=== PATIENT | female | born 1940 | race Caucasian/White ===

== ENCOUNTER 2017-11-08 11:57 | Observation (INO) | payer MEDICARE ==
[~2017-11-08] VITALS: Ht 144.8 cm; Wt 59.4 kg
[2017-11-08] MEDS ORDERED: ASPIRIN 81 MG CHEW TAB PO ONE (12:15)
[2017-11-08 12:32] LABS: BASOPHILS % 0.5 % (0.0-1.0); EOSINOPHILS # (AUTO) 0.1 (0.0-0.4); EOSINOPHILS % 1.3 % (0.0-6.0); HEMATOCRIT 39.8 % (34.2-44.1); HEMOGLOBIN 13.5 g/dL (12.0-16.0); LYMPHOCYTES # (AUTO) 1.8 (1.0-3.2); MEAN CORPUSCULAR HEMOGLOBIN 31.1 pg (28-32); MEAN CORPUSCULAR HGB CONC 33.9 g/dL (31-35); MEAN CORPUSCULAR VOLUME 91.7 fL (81-99); MONOCYTES # (AUTO) 0.7 (0.2-0.8); MONOCYTES % 8.5 % (4.4-11.3); NEUTROPHILS # (AUTO) 5.5 (2.1-6.9); NEUTROPHILS % 67.2 % (38.7-80.0); PLATELET COUNT 282 x10e3/uL (140-360); RED BLOOD COUNT 4.34 x10e6/uL (3.6-5.1); RED CELL DISTRIBUTION WIDTH 13.2 % (11.7-14.4)
[2017-11-08 12:41] LABS: INR 0.92; PROTHROMBIN TIME 11.6 seconds (11.9-14.5)
[2017-11-08 12:42] LABS: PARTIAL THROMBOPLASTIN TIME 29.2 seconds (23.8-35.5)
[2017-11-08 12:51] LABS: ALBUMIN 3.6 g/dL (3.5-5.0); ALBUMIN/GLOBULIN RATIO 0.9 (0.8-2.0); ANION GAP 15.8 mmol/L (8-16); CALCIUM 10.2 mg/dL (8.4-10.2); CREATININE, SERUM 0.94 mg/dL (0.57-1.11); POTASSIUM 3.8 mmol/L (3.5-5.1)
[2017-11-08 12:58] LABS: CREATINE KINASE MB 1.4 ng/mL (0-5.0)
[2017-11-08] MEDS ORDERED: SODIUM CHLORIDE 0.9% 500ML 500 ML ONE (12:59)
[2017-11-08] MEDS ORDERED: SODIUM CHLORIDE 0.9% 500ML 500 ML IV ONE (13:00)
[2017-11-08] MEDS ORDERED: SODIUM CHLORIDE 0.9% 50ML 50 ML ONE (14:32)
[2017-11-08] MEDS ORDERED: IOPAMIDOL 370 MG/ML 200 ML INFUS..BTL INJ ONE (14:32)
--- NOTE | 2017-11-08 15:12 | Diagnostic Imaging Report ---
EXAM: CT Chest WITH contrast (PE Protocol) INDICATION: \S\SOB \[id number] \S\[id number] COMPARISON: None TECHNIQUE: Chest was scanned utilizing a multidetector helical scanner from the lung apex through the level of the diaphragm after administration of IV contrast. Thin section reconstructions were obtained with special concentration on the pulmonary arteries. Coronal and sagittal reformations were obtained. Pulmonary embolism protocol was performed. IV CONTRAST: 100 mL of Isovue-370 COMPLICATIONS: None RADIATION DOSE: Total DLP: 478.21 mGy*cm Estimated effective dose: (DLP x 0.014 x size factor) mSv CTDIvol has been reviewed. It is below the limits set by the Radiation Protocol Committee (RPC). FINDINGS: LINES/ TUBES: None. LUNGS AND AIRWAYS: Tiny nonobstructive filling defects within segmental branches of right upper lobe pulmonary artery, best seen on sagittal images (series 400, images 53 and 52). 3 mm subpleural left upper lobe nonspecific nodule (series 3, image 19). Airways are normal. PLEURA: The pleural spaces are clear. HEART AND MEDIASTINUM: The thyroid gland is normal. No mediastinal, hilar or axillary lymphadenopathy. The heart is normal in size.. There is no pericardial effusion. . Main pulmonary artery measures 2.6 cm in diameter and the ascending aorta measures 3.1 cm. UPPER ABDOMEN: Small calcified gallstone. Small hiatal hernia. BONES: Unremarkable. T3 vertebral body sclerotic focus, likely a bone island. SOFT TISSUES: Unremarkable. IMPRESSION: Small nonobstructing filling defects within segmental branches of the right upper lobe pulmonary artery, suspicious for pulmonary embolism. Cholelithiasis. Dr. Gregorio was notified at 3:05 PM, on 11/08/2017. Signed by: Dr. Sabino Mcgraw MD on 11/08/2017 3:09 PM
[2017-11-08] MEDS ORDERED: ENOXAPARIN SOD INJ 60 MG/0.6 ML SYR SC STA (15:41)
[2017-11-08 17:29] VITALS: BP 178/77
[2017-11-08 17:30] VITALS: BP 178/77
[2017-11-08 17:58] VITALS: BP 178/77
[2017-11-08] MEDS ORDERED: ACETAMINOPHEN 325 MG TAB PO PRN (18:00)
[2017-11-08] MEDS ORDERED: ONDANSETRON HCL 4 MG ORAL DISINTEGRATING TAB PO PRN ×2 (18:00→18:30)
[2017-11-08 18:24] VITALS: BP 134/65
[2017-11-08 20:05] VITALS: BP 141/66
[2017-11-08] MEDS: ENOXAPARIN SOD INJ 60 MG/0.6 ML SYR SC SCH (20:39)
[2017-11-08] MEDS: ACETAMINOPHEN 325 MG TAB PO PRN (20:41)
[2017-11-08 21:39] VITALS: BP 141/66
[2017-11-09] VITALS: BP 139/77
[2017-11-09 04:00] VITALS: BP 141/64
[2017-11-09 08:01] VITALS: BP 141/63
[2017-11-09] MEDS: ENOXAPARIN SOD INJ 60 MG/0.6 ML SYR SC SCH (08:52)
[2017-11-09] MEDS ORDERED: RIVAROXABAN 15 MG TABLET PO SCH (09:00)
[2017-11-09] MEDS: ACETAMINOPHEN 325 MG TAB PO PRN (09:30)
--- NOTE | 2017-11-09 11:42 | History and Physical ---
PRIMARY CARE PHYSICIAN: Dr. Tod Barrera with [facility]. REASON FOR ADMISSION: Shortness of breath. HISTORY OF PRESENT ILLNESS: Ms. Dolores Chang is a 77-year-old female. She had a recent travel to [place] in [place] about few weeks ago and after that she has been having episodes of cough with shortness of breath. She has seen her primary care physician and she was diagnosed with some bacterial infection. She has completed the course of antibiotics, but still she did not get any better, hence she has seen her PCP yesterday and he who ordered a CT chest with PE protocol. CT chest PE protocol showed some filling defect in the segmental branches of the right upper lobe pulmonary artery suspicious for PE, hence the patient was admitted to the hospital under observation status. She was started on Lovenox and Hematology, Dr. Stephenson also was consulted. She denies any lower extremity swelling or pain. She denies any other past medical history. REVIEW OF SYSTEM GENERAL: She is afebrile. Denies any focal weakness. HEENT: Eyes: Denies any blurry vision. ENT: Denies any ear, nose, throat pain, or drainage. CARDIOVASCULAR: Denies any chest pain. Does have some shortness of breath. Denies any palpitations or syncopal episodes. RESPIRATORY: Does have cough, shortness of breath. Denies any sputum production. GI: Denies any nausea, vomiting, abdominal pain, or diarrhea. NEURO: Denies any headaches, dizziness or focal weakness. MUSCULOSKELETAL: No joint swelling or tenderness. GENITOURINARY: Denies any dysuria, urinary frequency or urgency. INTEGUMENTARY: Denies any ulcers or rash. PAST MEDICAL HISTORY: None. 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 SOCIAL HISTORY: She lives at home. She is pretty independent. No history of smoking, alcohol or drug use. She is retired. FAMILY HISTORY: Father had history of multiple myeloma and congestive heart failure. Both parents are current . HOME MEDICATIONS: Currently none. PHYSICAL EXAMINATION VITAL SIGNS: At this time, temperature 96.7, heart rate is 66, respirations of 19, blood pressure 141/63, SpO2 of 99% on room air. GENERAL: The patient is awake, alert, and oriented. She is currently not in any acute distress. HEENT: Head is normocephalic, atraumatic. Eyes: Normal extraocular movements noted. ENT: Moist mucous membranes noted. NECK: Supple. No raised JVD. CARDIOVASCULAR: Rate and rhythm regular. LUNGS: Clear to auscultation bilaterally. Occasional rhonchi noted. GI: Abdomen is soft, nontender. Bowel sounds present. NEURO: Cranial nerves II-XII grossly intact. Power and tone is normal in the bilateral upper and lower extremities. PSYCH: Normal mood and affect. INTEGUMENTARY: No ulcers or rash noted. MUSCULOSKELETAL: No joint swelling or tenderness noted. LABS AND IMAGING STUDIES: CBC: WBC count of 8.2, hemoglobin 13.5, hematocrit 39.8, platelet count of 282,000. BMP: Sodium 142, potassium 3.8, chloride 106, CO2 of 24, BUN of 15, creatinine 0.94, and blood glucose of 97. Coagulation: PT is 11.6, INR 0.92, and venous thrombophilia panel has been ordered. ASSESSMENT 1. A 77-year-old female with one new diagnosis of pulmonary embolism with filling defect in the segmental arteries on the right side. 2. History of recent travel. PLAN: The patient will be under observation status. The patient was given Lovenox in the emergency room. I have discussed with the patient. She prefers oral anticoagulation. I have discussed with Dr. Stephenson, hematology. He has suggested to start the patient on Xarelto and I have ordered lower extremity Dopplers. Await lower extremity venous Dopplers to rule out any DVT. Venous thrombophilia panel has been ordered. The patient will need hematology follow up as outpatient. The venous Doppler is negative. The patient will be discharged home on oral Xarelto with outpatient follow up. She needs hematology followup for the results on VT workup. Job#: [id number] VAS cc:DR. TOD BARRERA
[2017-11-09 11:51] VITALS: BP 144/68
--- NOTE | 2017-11-09 12:12 | Consultation ---
DATE OF CONSULTATION: November 09, 2017 ATTENDING DOCTOR: Dr. Sharma. REASON FOR CONSULTATION: New onset of pulmonary embolism. HISTORY OF PRESENT ILLNESS: She is very pleasant 77-year-old female with a past medical history of chronic lung disease, status post lung resections, currently in hospital with persistent cough, tachycardia and tachypnea. She was referred by primary care physician for possibility of pulmonary embolism. Her symptoms are associated with shortness of breath. She was recently treated with antibiotic treatment with mild improvement. At time of admission, patient had CAT scan, which shows subsegmental atelectasis, small nonobstructing filling defect with segmental branches of right upper lobe pulmonary artery suspicion for the pulmonary embolism. Patient currently started on Lovenox. She had recent history of traveling with pressurized air chamber. No other risk factor identified. Patient denies any prior history of any blood clot or family history of similar symptoms or disease. PAST MEDICAL HISTORY: Chronic lung disease. ALLERGIES: NKDA. MEDICATIONS: List reviewed. SOCIAL HISTORY: No smoking, alcohol or drugs. FAMILY HISTORY: Reviewed and noncontributory. REVIEW OF SYSTEMS: Twelve-point system review as per HPI. PHYSICAL EXAMINATION GENERAL: Alert, awake, communicative. HEENT: Normocephalic and atraumatic. Sclerae pink and conjunctivae clear. NECK: Supple. CHEST: Clear to auscultation with decreased breath sounds at the bases. CARDIOVASCULAR: Regular rate and rhythm. ABDOMEN: Soft and nontender. EXTREMITIES: No clubbing, cyanosis or edema. CASKET COVERER: Grossly intact. LABS AND IMAGING: Reviewed. ASSESSMENT AND PLAN: The patient with history of chronic lung disease, admitted with shortness of breath, tachypnea, cough, tachycardia, workup consistent with small pulmonary embolism. Patient's only risk factor identified was recent traveling. Recommendation to continue anticoagulation for six months. We will do hypocoagulable workup. We will continue remaining care. Patient will be followed as an outpatient. Will also follow with Doppler reports, scheduled to done today. Thank you Dr. Sharma for this consultation. Job#: [id number] GARobert
--- NOTE | 2017-11-09 13:50 | Discharge Summary ---
Discharge the patient home. DISCHARGE DIAGNOSES 1. New diagnosis of acute pulmonary embolus. 2. History of prolonged travel. HOSPITAL COURSE: Ms. Dolores Chang is a 77-year-old female admitted with shortness of breath. CT chest with PE protocol showed evidence of nonobstructive PE on the right side. The patient had thrombophilia panel done here and she was advised to follow up outpatient for the results, and she prefers to be on newer oral anticoagulants and so patient will be discharged home on Xarelto for anticoagulation. Lower extremity Dopplers have been done in the hospital that were negative. She needs to follow up with primary care physician and also hematology as outpatient. Patient's PCP is Dr. Tod Barrera. I have seen and examined the patient on the day of discharge. CONDITION AT TIME OF DISCHARGE: Stable. MEDICATIONS: Per MAR. ACTIVITY: As tolerated. DIET: Regular diet. FOLLOWUP: The patient was advised to follow up with primary care physician and hematology as outpatient in 1 week. VENANCIO PICKARD MD Job#: [id number] TA cc:DR. TOD BARRERA
[2017-11-09] MEDS ORDERED: XARELTO20 MG PO (14:42)
[2017-11-09] MEDS ORDERED: XARELTO10 MG PO (14:42)
[2017-11-09] MEDS ORDERED: TESSALON PERLE100 MG PO (14:43)
== END 2017-11-09 15:11 | disposition home or self-care (01) ==
LOC: ER 11:57 → ERHOLD 17:02 → IMCU 17:23
PROVIDERS: ADMIT Family Medicine; ATTEND Family Medicine
DX: I26.99 Other pulmonary embolism without acute cor pulmonale (principal); Z82.49 Family history of ischemic heart disease and other diseases of the circulatory system; J98.4 Other disorders of lung
CPT/HCPCS: 36415; 71260; 80053; 82550; 82553; 84484; 85025; 85300; 85302; 85303; 85305; 85306; 85597; 85598; 85610; 85613 ×2; 85730 ×2; 85732; 86146 ×3; 86147; 86148; 86849; 93005; 93970; 99284; G0378 ×2; J1650; J7040; Q9967